=== PATIENT | female | born 1990 | race Caucasian/White ===

== ENCOUNTER → 2022-05-05 09:26 | Outpatient (BNVA) | payer OTHER, SELFPAY | PROVIDERS: PCP Internal Medicine; Visit Provider Physician Assistant | DX: Z13.89 Encounter for screening for other disorder (principal) ==

== ENCOUNTER → 2022-05-13 13:58 | Outpatient (BNVA) | payer OTHER, SELFPAY | PROVIDERS: PCP Internal Medicine; Visit Provider Physician Assistant Surgical | DX: E66.9 Obesity, unspecified (principal); Z68.36 Body mass index [BMI] 36.0-36.9, adult | CPT/HCPCS: 99202 ==

== ENCOUNTER → 2022-05-14 09:12 | Outpatient (BNVA) | payer OTHER, SELFPAY | PROVIDERS: PCP Internal Medicine; Visit Provider Physician Assistant Surgical | DX: Z11.0 Encounter for screening for intestinal infectious diseases (principal) | CPT/HCPCS: 99211 ==

== ENCOUNTER 2022-05-14 09:30 | Outpatient (REF) | payer OTHER, SELFPAY ==
[2022-05-18 13:33] LABS: H Pylori Breath Test Negative (Negative)
== END 2022-05-14 09:31 | disposition home or self-care (01) ==
LOC: HO.LNP 09:30
PROVIDERS: Visit Provider Physician Assistant Surgical
DX: E66.9 Obesity, unspecified (principal); I10 Essential (primary) hypertension
CPT/HCPCS: 83013

== ENCOUNTER 2022-05-15 09:30 | Outpatient (REF) | payer OTHER, SELFPAY ==
--- NOTE | ~2022-05-15 | XR_ITS ---
EXAMINATION: XR CHEST CLINICAL INFORMATION: Bariatric service evaluation. E66.9. COMPARISON: None TECHNIQUE: 2 views of the chest were obtained. FINDINGS: The lungs are clear and there is no airspace consolidation or groundglass opacity. Costophrenic sulci are well-defined. Heart size normal. Vascularity normal. The hilar and mediastinal contours are normal. There is a gentle dextrocurvature thoracic spine. XR/XR chest 2V IMPRESSION: Lungs clear.
--- NOTE | 2022-05-15 09:42 | ECG_ITS ---
Test Reason : obesity Blood Pressure : / mmHG Vent. Rate : 083 BPM Atrial Rate : 083 BPM P-R Int : 132 ms QRS Dur : 080 ms QT Int : 368 ms P-R-T Axes : 000 112 131 degrees QTc Int : 432 ms Limbs lead reversal Normal sinus rhythm Otherwise normal ECG No previous ECGs available Referred By: Thuan Dahl Electronically Signed By:Garfield Mcleod
[2022-05-15 09:45] LABS: MANUAL DIFF FLAG NO
[2022-05-15 10:54] LABS: Basophils Absolute Auto 0.1 X10*3/uL (0.0-0.2); Basophils Percent Auto 0.6 % (0-2); Eosinophils Absolute Auto 0.1 X10*3/uL (0.0-0.4); Hematocrit 40.9 % (37.0-47.0); Hemoglobin 13.3 g/dl (12.0-16.0); Imm Gran Abs Auto 0.05 X10*3/uL (0.00-0.03); Imm Gran Pct Auto 0.6 % (0.0-0.4); Mean Corpuscular HGB Conc 32.5 g/dl (31.0-35.0); Mean Corpuscular Hemoglobin 27.1 pg (27.0-33.0); Mean Corpuscular Volume 83.5 fL (80.0-98.0); Monocytes Absolute Auto 0.6 X10*3/uL (0.1-1.2); Monocytes Percent Auto 6.9 % (2-11); Neutrophils Absolute Auto 5.4 x10*3/uL (2.0-8.3); Neutrophils Percent Auto 66.9 % (45-73); Platelet Count 342 X10*3/uL (160-400); Red Cell Distribution Width 13.2 % (11.0-16.0); White Blood Count 8.1 X10*3/uL (4.8-10.8)
[2022-05-15 11:19] LABS: Estimated Average Glucose 100 mg/dL; Hemoglobin A1c % 5.1 %
[2022-05-15 11:36] LABS: Alanine Aminotransferase 31 U/L (0-31); Albumin Level 4.8 g/dL (3.5-5.0); Alkaline Phosphatase 72 U/L (39-117); Anion Gap 18 (12-20); Aspartate Amino Transferase 20 U/L (5-31); Bilirubin Total 0.7 mg/dL (0.0-1.0); Blood Urea Nitrogen 16 mg/dL (9-16); C Reactive Protein 0.45 mg/dL (< or = 0.50); Calcium 10.1 mg/dL (8.4-10.2); Carbon Dioxide 26 mmol/L (22-29); Chloride 103 mmol/L (96-108); Cholesterol 149 mg/dL; Estimated Glomerular Filt Rate > 60; Glucose Random 78 mg/dL (60-115); HDL Cholesterol 45 mg/dL; Iron 102 mcg/dL (30-160); LDL Cholesterol Calculated 91 mg/dl; Percent Iron Saturation 28 % (15-50); Potassium 5.5 mmol/L (3.3-5.1); Sodium 141 mmol/L (135-145); Total Iron Binding Capacity 367 mcg/dL (228-428); Total Protein 7.4 g/dL (6.5-8.0); Triglycerides 67 mg/dL; Unsaturated Iron Binding 265 ug/dL
[2022-05-15 11:53] LABS: Ferritin 68 ng/mL (10-122); Folate 8.5 ng/mL (> or = 4.0); Insulin 14 uU/mL (2-29); TSH reflex Free T4 0.54 uIU/mL (0.32-4.0); Vitamin B12 343 pg/mL (200-900); Vitamin D 25-OH Total 8.3 ng/mL (>30)
[2022-05-19 14:14] LABS: Calcium (PTHI) 10.5 mg/dL (8.6-10.2); PTHI 53 pg/mL (16-77)
[2022-05-19 16:05] LABS: Zinc 72 mcg/dL (60-130)
[2022-05-21 13:13] LABS: Vitamin A 65 mcg/dL (38-98)
[2022-05-24 17:49] LABS: Vitamin B1 11 nmol/L (8-30)
== END 2022-05-15 09:31 | disposition home or self-care (01) ==
LOC: HO.LAB 09:30
PROVIDERS: PCP Internal Medicine; Visit Provider Physician Assistant Surgical
DX: E66.9 Obesity, unspecified (principal); I10 Essential (primary) hypertension
CPT/HCPCS: 36415; 71046; 80053; 80061; 82306; 82607; 82728; 82746; 83036; 83525; 83540; 83970; 84425; 84443; 84590; 84630; 85025; 86140; 93005

== ENCOUNTER → 2022-05-28 10:10 | Outpatient (BNVA) | payer OTHER, SELFPAY | PROVIDERS: PCP Internal Medicine; Referring Provider Physician Assistant Surgical; Visit Provider Dietitian, Registered | DX: E66.9 Obesity, unspecified (principal); Z68.34 Body mass index [BMI] 34.0-34.9, adult | CPT/HCPCS: 97802 ==

== ENCOUNTER → 2022-06-09 12:55 | Outpatient (BNVA) | payer OTHER, SELFPAY | PROVIDERS: PCP Internal Medicine; Visit Provider Physician Assistant Surgical | DX: E66.9 Obesity, unspecified (principal); Z68.34 Body mass index [BMI] 34.0-34.9, adult | CPT/HCPCS: 99212 ==

== ENCOUNTER → 2022-06-10 12:45 | Outpatient (BNVA) | payer OTHER, SELFPAY | PROVIDERS: PCP Internal Medicine; Visit Provider Counselor Mental Health | DX: F41.1 Generalized anxiety disorder (principal); G90.A Postural orthostatic tachycardia syndrome [POTS]; E66.9 Obesity, unspecified | CPT/HCPCS: 90791 ==

== ENCOUNTER → 2022-06-23 09:26 | Outpatient (BNVA) | payer OTHER, SELFPAY | PROVIDERS: PCP Internal Medicine; Visit Provider Surgery | DX: E66.9 Obesity, unspecified (principal); I10 Essential (primary) hypertension; G90.A Postural orthostatic tachycardia syndrome [POTS]; F41.1 Generalized anxiety disorder; Z68.33 Body mass index [BMI] 33.0-33.9, adult | CPT/HCPCS: 99212 ==

== ENCOUNTER → 2022-06-25 11:12 | Outpatient (BNVA) | payer OTHER, SELFPAY | PROVIDERS: PCP Internal Medicine; Visit Provider Dietitian, Registered | DX: E66.9 Obesity, unspecified (principal) | CPT/HCPCS: 97803 ==

== ENCOUNTER 2022-07-01 07:44 | Outpatient (REF) | payer OTHER, SELFPAY ==
--- NOTE | ~2022-07-01 | FL_ITS ---
EXAMINATION: XR FLUOROSCOPY UPPER GI WITH AIR CLINICAL INFORMATION: Obesity. COMPARISON: None available. TECHNIQUE: Routine upper GI air-contrast study was performed in upright and lying position. FINDINGS: Following oral administration of thick barium and effervescent granules, there is normal propagation of bolus from the oral cavity through the pharynx, esophagus into stomach without any evidence of obstruction, narrowing or stricture. On placing patient supine and prone, there is a small sliding hiatal hernia with moderate gastroesophageal reflux. The rest of the course, caliber of the stomach, duodenal bulb and the sweep is normal. The mucosal pattern of the stomach and the duodenum is normal. FLUOROSCOPY TIME: 1.3 minutes DOSE AREA PRODUCT: 21.6 uGy-m2 (microgray-meter squared) FL/FL upper GI w air IMPRESSION: Small sliding hiatal hernia with moderate gastroesophageal reflux.
--- NOTE | ~2022-07-01 | US_ITS ---
EXAMINATION: US COMPLETE ABDOMEN WITH LIVER ELASTOGRAPHY CLINICAL INFORMATION: Obesity. COMPARISON: CT abdomen of 02/02/2020. TECHNIQUE: Real-time imaging of the abdominal viscera. Noninvasive ultrasound liver fibrosis assessment is performed using Rafia ElastPQ point quantification shear wave elastography (2D-SWE) with a C5-2 MHz transducer. Multiple elastography samples are obtained. FINDINGS: PANCREAS: Normal. The visualized pancreatic head and body are normal in appearance. The remainder of the pancreas is obscured from visualization by the overlying bowel gas. ABDOMINAL AORTA: The proximal, middle, and distal aortic segments are normal in caliber. INFERIOR VENA CAVA: Visualized portions are normal. LIVER: Normal. The liver demonstrates normal size, contour and echogenicity. No focal lesion or intrahepatic biliary duct dilatation. The right lobe measures 16.3 cm in length. The left lobe measures 9.6 cm in length. Portal flow is hepatopedal. Shear wave liver elastography median stiffness is 1.32 m/s (reference: normal median stiffness is 1.3 m/s or less). IQR/median stiffness to assess sampling precision is 0.14 (reference: good quality data set is IQR/median stiffness of 0.15 or less). GALLBLADDER: Status post cholecystectomy. COMMON BILE DUCT: Normal in caliber measuring 0.3 cm in diameter. RIGHT KIDNEY: No hydronephrosis. No renal calculi or focal solid parenchymal lesions. There are 3 simple-appearing cysts present with the largest in the midpole measuring 1.2 x 0.9 x 1.2 cm in size. These do not require followup. The kidney measures 11.6 cm in maximum dimension. LEFT KIDNEY: No hydronephrosis. No focal solid mass is identified. Within the midpole region there is a 1.2 x 0.8 x 1.2 cm cyst containing a single dependent calcification. This represents a Bosniak 2 type cyst that does not require followup. The kidney measures 11.5 cm in maximum dimension. SPLEEN: Normal. The spleen measures 11.8 cm in maximum dimension. FREE FLUID: None. US/US abdomen comp w elastography IMPRESSION: 1. Bilateral renal cysts. 2. Liver elastography: In the absence of other known clinical signs, measurements rule out compensated advanced chronic liver disease. If there are known clinical signs, further testing may be needed for confirmation. REFERENCE: Society of Radiologists in Ultrasound Liver Stiffness Thresholds (2020): LIVER STIFFNESS THRESHOLDS: *Liver Stiffness equal or less than 1.3 m/s: High probability of being normal. *Liver Stiffness less than 1.7 m/s: In the absence of other known clinical signs, rules out compensated advanced chronic liver disease. *Liver Stiffness 1.7-2.1 m/s: Suggestive of compensated advanced chronic liver disease but need further test for confirmation. *Liver Stiffness over 2.1 m/s: Rules in compensated advanced chronic liver disease. *Liver Stiffness over 2.4 m/s: Suggestive of clinically significant portal hypertension. QUALITY OF DATA SET: *IQR/Median value equal or less than 0.15 implies a quality data set. *IQR/Median value over 0.15 implies a poor quality data set. SIGNIFICANT CHANGE FROM PRIOR EXAM: Significant change if liver stiffness measurement is 10% or greater from prior exam. OTHER CONSIDERATIONS: The stage of liver fibrosis may be overestimated in the setting of acute hepatitis, liver inflammation, elevated liver function tests, hepatic vascular congestion, obstructive cholestasis, non-fasting state, and infiltrative diseases such as amyloidosis and lymphoma. In some patients with NAFLD, the liver stiffness thresholds for compensated advanced chronic liver disease may be lower. In causes other than viral hepatitis and NAFLD, liver stiffness thresholds are not well established.
== END 2022-07-01 07:45 | disposition home or self-care (01) ==
LOC: HO.US 07:44
PROVIDERS: PCP Internal Medicine; Visit Provider Physician Assistant Surgical
DX: E66.9 Obesity, unspecified (principal); I10 Essential (primary) hypertension
CPT/HCPCS: 74246; 76705; 76981

== ENCOUNTER → 2022-07-03 10:00 | Outpatient (BNVA) | payer OTHER, SELFPAY | PROVIDERS: PCP Internal Medicine; Visit Provider Counselor Mental Health ==

== ENCOUNTER → 2022-07-09 10:58 | Outpatient (BNVA) | payer OTHER, SELFPAY | PROVIDERS: PCP Internal Medicine; Visit Provider Physician Assistant Surgical ==

== ENCOUNTER → 2022-07-15 09:16 | Outpatient (BNVA) | payer OTHER, SELFPAY | PROVIDERS: PCP Internal Medicine; Visit Provider Physician Assistant Surgical | DX: E66.9 Obesity, unspecified (principal); G90.A Postural orthostatic tachycardia syndrome [POTS]; Z68.32 Body mass index [BMI] 32.0-32.9, adult | CPT/HCPCS: 99212 ==

== ENCOUNTER → 2022-07-23 12:23 | Outpatient (BNVA) | payer OTHER, SELFPAY | PROVIDERS: PCP Internal Medicine; Visit Provider Physician Assistant Surgical | DX: E66.9 Obesity, unspecified (principal); I10 Essential (primary) hypertension; F41.1 Generalized anxiety disorder; G90.A Postural orthostatic tachycardia syndrome [POTS]; Z68.33 Body mass index [BMI] 33.0-33.9, adult | CPT/HCPCS: 99212 ==

== ENCOUNTER → 2022-07-24 12:43 | Outpatient (BNVA) | payer OTHER, SELFPAY | PROVIDERS: PCP Internal Medicine; Referring Provider Internal Medicine; Visit Provider Surgery | DX: E66.9 Obesity, unspecified (principal); I10 Essential (primary) hypertension; G90.A Postural orthostatic tachycardia syndrome [POTS]; F41.1 Generalized anxiety disorder; K44.9 Diaphragmatic hernia without obstruction or gangrene; K76.0 Fatty (change of) liver, not elsewhere classified; K21.9 Gastro-esophageal reflux disease without esophagitis; Z68.33 Body mass index [BMI] 33.0-33.9, adult | CPT/HCPCS: 99212 ==

== ENCOUNTER → 2022-07-25 12:47 | Outpatient (BNVA) | payer OTHER, SELFPAY | PROVIDERS: PCP Internal Medicine; Visit Provider Surgery ==

== ENCOUNTER → 2022-08-05 11:08 | Outpatient (BNVA) | payer OTHER, SELFPAY | PROVIDERS: PCP Internal Medicine; Visit Provider Surgery | DX: E66.9 Obesity, unspecified (principal); K76.0 Fatty (change of) liver, not elsewhere classified; K44.9 Diaphragmatic hernia without obstruction or gangrene; K21.9 Gastro-esophageal reflux disease without esophagitis; F41.1 Generalized anxiety disorder; G90.A Postural orthostatic tachycardia syndrome [POTS]; I10 Essential (primary) hypertension; Z68.31 Body mass index [BMI] 31.0-31.9, adult | CPT/HCPCS: 99212 ==

== ENCOUNTER 2022-08-06 06:09 | Inpatient (IN) | payer OTHER, SELFPAY ==
[2022-07-29 13:53] VITALS: BMI 32.3
[2022-08-04 09:37] LABS: MANUAL DIFF FLAG NO
[2022-08-04 09:39] LABS: Basophils Percent Auto 0.6 % (0-2); Eosinophils Absolute Auto 0.1 X10*3/uL (0.0-0.4); Eosinophils Percent Auto 0.9 % (0-4); Hematocrit 40.5 % (37.0-47.0); Hemoglobin 13.6 g/dl (12.0-16.0); Imm Gran Abs Auto 0.02 X10*3/uL (0.00-0.03); Imm Gran Pct Auto 0.3 % (0.0-0.4); Lymphocytes Absolute Auto 2.3 X10*3/uL (1.2-4.9); Lymphocytes Percent Auto 34.6 % (20-40); Mean Corpuscular HGB Conc 33.6 g/dl (31.0-35.0); Mean Corpuscular Hemoglobin 27.7 pg (27.0-33.0); Mean Corpuscular Volume 82.5 fL (80.0-98.0); Mean Platelet Volume 10.5 fL (9.4-12.3); Monocytes Absolute Auto 0.3 X10*3/uL (0.1-1.2); Monocytes Percent Auto 5.1 % (2-11); Neutrophils Absolute Auto 3.8 x10*3/uL (2.0-8.3); Neutrophils Percent Auto 58.5 % (45-73); Platelet Count 255 X10*3/uL (160-400); Red Blood Count 4.91 X10*6/uL (4.20-5.50); Red Cell Distribution Width 12.9 % (11.0-16.0); White Blood Count 6.5 X10*3/uL (4.8-10.8)
[2022-08-04 09:48] LABS: INTERNATIONAL NORM RATIO 1.1 (0.9-1.1); Prothrombin Time 12.9 SEC (10.0-13.1)
[2022-08-04 09:51] LABS: Partial Thromboplastin Time 35.8 SEC (26.0-36.4)
[2022-08-04 10:02] LABS: Alanine Aminotransferase 11 U/L (0-31); Albumin Level 4.6 g/dL (3.5-5.0); Alkaline Phosphatase 57 U/L (39-117); Anion Gap 12 (12-20); Aspartate Amino Transferase 11 U/L (5-31); Bilirubin Total 0.5 mg/dL (0.0-1.0); Blood Urea Nitrogen 12 mg/dL (9-16); C Reactive Protein 0.14 mg/dL (< or = 0.50); Calcium 10.1 mg/dL (8.4-10.2); Carbon Dioxide 29 mmol/L (22-29); Chloride 105 mmol/L (96-108); Cholesterol 148 mg/dL; Creatinine Clr Calc Pharmacy 110.9; Estimated Glomerular Filt Rate > 60; Glucose Random 88 mg/dL (60-115); HDL Cholesterol 45 mg/dL; Iron 62 mcg/dL (30-160); LDL Cholesterol Calculated 94 mg/dl; Percent Iron Saturation 20 % (15-50); Potassium 4.8 mmol/L (3.3-5.1); Sodium 141 mmol/L (135-145); Total Iron Binding Capacity 303 mcg/dL (228-428); Total Protein 7.4 g/dL (6.5-8.0); Triglycerides 47 mg/dL; Unsaturated Iron Binding 241 ug/dL
[2022-08-04 10:35] LABS: Ferritin 51 ng/mL (10-122); TSH reflex Free T4 0.84 uIU/mL (0.32-4.0); Vitamin B12 523 pg/mL (200-900); Vitamin D 25-OH Total 59.7 ng/mL (>30)
[2022-08-04 10:59] LABS: Estimated Average Glucose 103 mg/dL; Hemoglobin A1C 119.4609 umol/L; Hemoglobin A1c % 5.2 %
--- NOTE | 2022-08-05 10:49 | P.CONAN_ITS ---
Documented by User: Viki Ramachandran NP 08/05/22 10:52 HPI - Anesthesia Eval Consult details Narrative: 32yo F for Gastrectomy Sleeve, EGD poss diaphragmatic hernia, poss ventral hernia, poss open. Cardiac cleared - follows for POTS PMFSH Active Problems Active Problems: All Active Problems (Updated 07/30/22 @ 06:33 by Zulma Willard RN) Obesity (BMI 30-39.9) (Acute) HTN (hypertension) (Acute) POTS (postural orthostatic tachycardia syndrome) (Acute) Generalized anxiety disorder (Acute) NAFLD (nonalcoholic fatty liver disease) (Acute) Hiatal hernia (Acute) GERD (gastroesophageal reflux disease) (Acute) Past Medical History Medical History Anxiety GERD (gastroesophageal reflux disease) Hiatal hernia HTN (hypertension) Postural orthostatic tachycardia syndrome [POTS] Family History Family History Mother Hypertension High cholesterol Asthma Emphysema, unspecified Father Diabetes High cholesterol Hypertension Brother No problems noted. Brother No problems noted. Son Autism Son No problems noted. Son No problems noted. Son No problems noted. Daughter No problems noted. Daughter No problems noted. Surgical History Surgical History Hx of cholecystectomy Hx of dilation and curettage Hx of wisdom tooth extraction Social History Social History Are you a primary care professionals to a significant other at home: Yes Do you presently have visiting nurse or other home services: No Alcohol intake: never Patient Tobacco Use Status: Never used Tobacco Have you been hit, kicked, punched, or otherwise hurt by someone within the past year? If so, by whom?: No Are you DNR?: No Advance Directives: No Advance Directives Information Provided: No Advance Directives on File: No Recently lost weight without trying: No Eating poorly because of decreased appetite: No Nutrition Risks: No Nutritional Risk Patient : No Poor oral hygiene: No Meds Allergies Allergy/AdvReac Type Severity Reaction Status Date / Time hydrocodone Allergy Mild Hives Verified 08/05/22 11:31 oxycodone [From Percocet] Allergy Mild Hives Verified 08/05/22 11:31 ampicillin [From Unasyn] Allergy Hives Verified 08/05/22 11:31 sulbactam [From Unasyn] Allergy Hives Verified 08/05/22 11:31 Home Medications Medication Instructions Recorded Confirmed Last Taken Type labetalol 100 mg tablet 50 mg PO BID 07/15/22 07/29/22 08/06/22 05:00 History Exam Exam Date and Time: August 05, 2022 1049 Height,Weight and Vital Signs: Height 5 ft 5 in Weight 87.997 kg Pertinent Lab Results Pertinent Lab Results: Laboratory Tests 08/04/22 08/04/22 08/04/22 09:30 09:35 09:35 WBC 6.5 RBC 4.91 Hgb 13.6 Hct 40.5 MCV 82.5 MCH 27.7 MCHC 33.6 RDW 12.9 Plt Count 255 D MPV 10.5 Immature Gran % (Auto) 0.3 Neut % (Auto) 58.5 Lymph % (Auto) 34.6 [place] % (Auto) 5.1 Eos % (Auto) 0.9 Baso % (Auto) 0.6 Lymph # (Auto) 2.3 [place] # (Auto) 0.3 Eos # (Auto) 0.1 Baso # (Auto) 0.0 Abs Immat Gran (auto) 0.02 Absolute Neuts (auto) 3.8 Absolute Nucleated RBC 0.000 Nucleated RBC % (auto) 0.0 PT 12.9 INR 1.1 APTT 35.8 Sodium Potassium Chloride Carbon Dioxide Anion Gap BUN Creatinine Estim Creat Clear Calc Estimated GFR Random Glucose Estimat Average Glucose Hemoglobin A1c % Calcium Iron TIBC % Saturation Unsat Iron Binding Ferritin Total Bilirubin AST ALT Alkaline Phosphatase C-Reactive Protein Total Protein Albumin Triglycerides Cholesterol LDL Cholesterol, Calc HDL Cholesterol Vitamin B12 25-OH Vitamin D Total TSH Blood Type O Positive Antibody Screen NEGATIVE 08/04/22 08/04/22 09:35 09:35 WBC RBC Hgb Hct MCV MCH MCHC RDW Plt Count MPV Immature Gran % (Auto) Neut % (Auto) Lymph % (Auto) [place] % (Auto) Eos % (Auto) Baso % (Auto) Lymph # (Auto) [place] # (Auto) Eos # (Auto) Baso # (Auto) Abs Immat Gran (auto) Absolute Neuts (auto) Absolute Nucleated RBC Nucleated RBC % (auto) PT INR APTT Sodium 141 Potassium 4.8 Chloride 105 Carbon Dioxide 29 Anion Gap 12 BUN 12 Creatinine 0.79 Estim Creat Clear Calc 110.9 Estimated GFR > 60 Random Glucose 88 Estimat Average Glucose 103 Hemoglobin A1c % 5.2 Calcium 10.1 Iron 62 TIBC 303 % Saturation 20 Unsat Iron Binding 241 Ferritin 51 Total Bilirubin 0.5 AST 11 ALT 11 Alkaline Phosphatase 57 C-Reactive Protein 0.14 Total Protein 7.4 Albumin 4.6 Triglycerides 47 Cholesterol 148 LDL Cholesterol, Calc 94 HDL Cholesterol 45 Vitamin B12 523 25-OH Vitamin D Total 59.7 TSH 0.84 Blood Type Antibody Screen Narrative Narrative: EKG 04/2022 Vent. Rate : 083 BPM ? ? Atrial Rate : 083 BPM ?? P-R Int : 132 ms? QRS Dur : 080 ms ? ? QT Int : 368 ms ? ? ? P-R-T Axes : 000 112 131 degrees ?? QTc Int : 432 ms ? Limbs lead reversal Normal sinus rhythm Otherwise normal ECG No previous ECGs available Assessment and Plan Assessment Anesthesia Assessment: Chart Reviewed Documented by User: Matt Sexton MD 08/06/22 07:34 PMFSH Past Medical History Medical History Anxiety GERD (gastroesophageal reflux disease) Hiatal hernia HTN (hypertension) Postural orthostatic tachycardia syndrome [POTS] Family History Family History Mother Hypertension High cholesterol Asthma Emphysema, unspecified Father Diabetes High cholesterol Hypertension Brother No problems noted. Brother No problems noted. Son Autism Son No problems noted. Son No problems noted. Son No problems noted. Daughter No problems noted. Daughter No problems noted. Family history of problems with anesthesia: No Surgical History Surgical History Hx of cholecystectomy Hx of dilation and curettage Hx of wisdom tooth extraction History of Problems with Anesthesia: No Social History Social History Are you a primary care professionals to a significant other at home: Yes Do you presently have visiting nurse or other home services: No Alcohol intake: never Patient Tobacco Use Status: Never used Tobacco Have you been hit, kicked, punched, or otherwise hurt by someone within the past year? If so, by whom?: No Are you DNR?: No Advance Directives: No Advance Directives Information Provided: No Advance Directives on File: No Recently lost weight without trying: No Eating poorly because of decreased appetite: No Nutrition Risks: No Nutritional Risk Patient : No Poor oral hygiene: No Meds Allergies Allergy/AdvReac Type Severity Reaction Status Date / Time hydrocodone Allergy Mild Hives Verified 08/05/22 11:31 oxycodone [From Percocet] Allergy Mild Hives Verified 08/05/22 11:31 ampicillin [From Unasyn] Allergy Hives Verified 08/05/22 11:31 sulbactam [From Unasyn] Allergy Hives Verified 08/05/22 11:31 Home Medications Medication Instructions Recorded Confirmed Last Taken Type labetalol 100 mg tablet 50 mg PO BID 07/15/22 07/29/22 08/06/22 05:00 History Exam Airway Mallampati Class: I TM Dist: >3cm Neck ROM: Full Heart: ok Lungs: ok Assessment and Plan Assessment Anesthesia Assessment: Anesthesia Plan Discussed Final Anesthetic Review Family History of Problems with Anesthesia: No History of Problems with Anesthesia: No NPO: Yes ASA Class: II Final Preanesthetic Review: No Changes in Pt Med Stat, Meds/Allgs Chart Reviewed, Consent Obtained/Reviewed and Anes Risks/Benef Reviewed Patient Risk: Low Procedure Risk: Intermediate Anesthetic Plan Anesthetic Plan: GA and Agree w/ Assess. and Plan Disposition: Standard PACU
[2022-08-05 12:34] LABS: COVID-19 Test Negative (Negative); IDNOW Serial# BCCEAD1C
--- NOTE | 2022-08-05 13:33 | MHC.SHP ---
Pre-Procedural Eval Section A Date of Service: 08/05/22 The patient is an INPATIENT: Yes The History & Physical has been completed within 30 days and I have reviewed it.: Yes Section B Chief Complaint: Obesity, unspecified Allergies: Allergies Allergy/AdvReac Type Severity Reaction Status Date / Time acetaminophen [From Percocet] Allergy Mild Hives Verified 08/05/22 11:31 hydrocodone Allergy Mild Hives Verified 08/05/22 11:31 oxycodone [From Percocet] Allergy Mild Hives Verified 08/05/22 11:31 ampicillin [From Unasyn] Allergy Hives Verified 08/05/22 11:31 sulbactam [From Unasyn] Allergy Hives Verified 08/05/22 11:31 Plan I have reviewed the history and physical and performed a pertinent physical examination on my patient. No changes have occurred unless specified. Time Spent With Patient Time: Total time managing care of this patient today ____ minutes.
[2022-08-06] VITALS (12 sets, daily range): BP systolic 110–138; BP diastolic 58–90; PULSE 66–98; RESP 12–18; TEMP 36.6–37.1; O2SAT 97–100
[2022-08-06 06:36] LABS: UPreg QC Valid YES; Urine Pregnancy NEGATIVE (NEGATIVE)
[2022-08-06] MEDS: Aprepitant 32 MG/4.4 ML VIAL IVPUSH (06:37)
--- NOTE | 2022-08-06 06:38 | MHC.SHP ---
Pre-Procedural Eval Section A Date of Service: 08/06/22 The patient is an INPATIENT: Yes The History & Physical has been completed within 30 days and I have reviewed it.: Yes Section B Chief Complaint: Obesity, unspecified Allergies: Allergies Allergy/AdvReac Type Severity Reaction Status Date / Time hydrocodone Allergy Mild Hives Verified 08/05/22 11:31 oxycodone [From Percocet] Allergy Mild Hives Verified 08/05/22 11:31 ampicillin [From Unasyn] Allergy Hives Verified 08/05/22 11:31 sulbactam [From Unasyn] Allergy Hives Verified 08/05/22 11:31 Plan I have reviewed the history and physical and performed a pertinent physical examination on my patient. No changes have occurred unless specified. Time Spent With Patient Time: Total time managing care of this patient today ____ minutes.
[2022-08-06] MEDS: Lactated Ringers 1,000 ML 150 ML IVCONT (06:39)
--- NOTE | 2022-08-06 06:39 | P.OP_ITS ---
Operative Note Operative Note Date of Service: 08/06/22 Narrative: Preop diagnosis: [Obesity, hypertension,NAFLD, hiatal hernia, POTS] Postop diagnosis: [same] Procedure: [Laparoscopic sleeve gastrectomy, hiatal hernia repair, gastropexy, intraoperative esophagogastroscopy] Surgeon: Josh Willoughby MD Assist: [Moriah Adame PA-C] Anesthesia: [GET, Marcaine, 0.5% with epi] Estimated blood loss: [3cc] Specimen: [Portion of stomach with fundus] Intraoperative findings: [Hiatal hernia, hepatomegaly, grossly normal stomach and spleen. No obvious anterior pancreas pathology. No evidence of appendicitis or right lower quadrant inflammation] Indications: [The patient is a 32-year-old woman with a struggle with obesity that was refractory to medical management. After multiple attempts to lose weight and failing, she entered the surgical weight loss program with a BMI of 36.3 and a weight of 218 lb. Following Education regarding healthy lifestyle changes, the patient wanted to discuss surgical weight loss and the options of laparoscopic gastric bypass and laparoscopic gastric sleeve were reviewed. The patient wanted to proceed with a laparoscopic sleeve gastrectomy, possible hiatal hernia repair, intraoperative endoscopy. I reviewed the inherent risks of this procedure which include, but are not limited to: Bleeding that could require another operation or blood transfusion; the inherent risks of transfusion reaction infectious disease from blood transfusions; the risk of staple line leaks that could cause sepsis, multi-system organ failure and ; the risk of mesenteric or deep vein thrombosis of the lower extremities that could cause a fatal pulmonary embolism was reviewed; the risk of GERD that could require conversion to gastric bypass was discussed; the risk of recurrent hiatal hernia, especially in the setting of weight regain was reviewed. The risk of weight regain if maladaptive eating and sedentary behavior continue was discussed. The importance of proper diet and increased activity to augment surgical weight loss and the fact that no operation would result in weight loss of poor dietary decisions and sedentary behavior are resumed were discussed at length and apparently understood. The patient had the option of having a martinez slator present and declined this option.] Procedure: [Patient was identified in the preoperative holding area and again in operating room 6. 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 She was placed supine on the table, induced and general endotracheal anesthesia administered with excellent effect. An appropriate time-out was performed. Safety straps were utilized and a footboard utilized. The patient was induced in general endotracheal anesthesia administered with excellent effect. An appropriate time-out was performed. The patient's abdomen was then widely prepped and draped in the usual manner for surgery using Chlorprep. Antibiotics per protocol were administered by Anesthesia. 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 SCDs were utilized. After infiltrating preemptive local in the skin and subcutaneous tissues in the left subcostal space, a stab incision was made sharply and the Veress needle inserted without incident. Appropriate drop test was performed then a pneumoperitoneum of 15 mmHg was obtained using carbon dioxide. Opening pressures were 6 mm Hg. Preemptive local was used at all trocar insertion sites and I began in the epigastric midline 10 cm from the xiphoid. A transverse incision was made. Next, a 5 mm 0 degree scope over a 5 mm Optiview trocar was used to access the abdomen in the in the midline of the epigastrium approximately 10 cm from the xiphoid. Upon entering, the obturator was removed and the abdomen explored. There was no evidence of injury from the Veress needle in it was removed. The bowel and deep structures were examined for injury from the trocar and none identified. The scope was then switched to a 5 mm 45 degree scope. Next, using preemptive local, additional 5 mm trocars were placed under direct laparoscopic vision and the 5 mm midline trocar upsized to a 12 mm to accommodate the stapler. The patient was then positioned in reverse Trendelenburg and the liver retractor deployed through the right lateral 5 mm trocar and secured. An hiatal hernia was demonstrated once the liver retractor was positioned. The stomach was already decompressed, but the 40 [place] ViSiGi was inserted to the GE junction by the anesthesiologist without difficulty. Dissection was begun along the greater curvature using the 5 mm [place] Li gaSure for hemostasis. Dissection was then carried towards the pylorus to 3-4 cm from the pylorus and retro gastric adhesions lysed. The gastroesophageal fat pad was carefully mobilized taking care to avoid injury to the esophagus and stomach and dissection carried towards the short gastrics taking care to avoid injury to the spleen and splenic artery. The diaphragmatic hiatus was carefully examined for a hernia which was present as described, so repair was indicated. Dissection was carried from the left edd of the diaphragm posteriorly. Next, the phrenoesophogeal memberane was open anterior and the pars flaccida opened to access the right edd of the diaphragm. The esophagus was carefully preserved, mobilized & freed into the abdomen for 3cm by dissection carried into the mediastinum. The esophagus was then surrounded with a quarter-inch Barbie drain and retracted anteriorly to facilitate posterior repair. Posterior dissection of the retroesophageal area was performed to demonstrate both crurae and hiatal hernia repair was performed using one 0 silk sutures with posterior repair. There was some anterior hiatus laxity that was closed with a single anterior 0 silk suture. Next, the 40 [place] ViSiGi bougie was advanced by anesthesiologist under direct vision and laparoscopic guidance and positioned in the antrum using laparoscopic graspers to serve as a guide for a stapled sleeve gastrectomy. Stapling was performed with DataLocker power stapler with a purple 45 and then purple 60 loads. The 10 mm clip elevator technician was used to apply additional clips to the staple line. Care was taken to be sure that the sleeve laid flat and was without stricture. Once the sleeve was complete, the portion of stomach was placed in the lower abdomen to be sent for permanent section. The staple line, gastrocolic omentum, spleen and short gastric areas were all inspected for hemostasis which was found to be good. The bougie was then removed. After inspecting again for hemostasis, a gastropexy was performed using 2-0 Polysorb suture to secure the sleeve gastrectomy to the gastrocolic omentum with intracorporeal suture technique. Next, I broke scrub perform an on-table upper endoscopy to assess the sleeve and the esophagus and stomach. The patient was returned to neutral position and the Olympus 160 gastroscope was advanced taking care to preserve the endotracheal tube. The esophagus was intubated without incident. Minimal air was insufflated and the scope advanced into the newly formed sleeve. The staple line was inspected for hemostasis and the morphology of the sleeve appeared straight with a uniform diameter. Intraoperatively, there was no evidence of staple line leak as my social worker assistant instilled sterile saline into the operative field via endoscope. The scope was then used to aspirate the air from the sleeve withdrawn and removed. I then rescrubbed to return to the operative field and again inspected the field for hemostasis. The patient was again placed in reverse Trendelenburg. After final assessment for hemostasis, the patient was returned to neutral position, a Mable used to withdraw the stomach which was sent for permanent section. The fascia of the 12 mm midline was closed using an 0 Polysorb figure of 8 on a suture passer under direct laparoscopic vision. The abdomen was then deflated and all trocars removed. The suture was then tied and the skin closed with 4-0 Monocryl subcuticular sutures. The abdomen was then washed and dried, benzoin and Steri-Strips, 2x2s & Tegaderms. The patient tolerated the procedure well was then extubated and sent to PACU in stable condition. All sponge needle and instrument counts were correct x2. At the patient's request, I contact Callie at [phone] to update her on the operation and findings. Her questions seemed to be satisfactorily answered.
--- NOTE | 2022-08-06 07:11 | PHA.MEDREC ---
Pharmacy Consult ? Medication Reconciliation Pharmacy has completed the medication reconciliation. Reviewed med rec done by nursing
--- NOTE | 2022-08-06 07:50 | PM.DS ---
DS: Providers Provider Date of Service: 08/07/22 Date of admission: 08/06/22 06:09 Primary care physician: Brigida Aleman MD DS: Summary Hospital Course Hospital Course: ADMITTING DIAGNOSIS: morbid obesity, HTN, POTS DISCHARGE DIAGNOSIS: same, s/p laparoscopic sleeve gastrectomy and repair diaphragmatic hernia PAST SURGICAL HISTORY: cholecystectomy, dilation and curretage PROCEDURE: upper endoscopy, laparoscopic sleeve gastrectomy and repair of diaphragmatic hernia hernia DISCHARGE SUMMARY: History of Present Illness: The patient is a 32 year-old woman with a BMI of 36.3 kg/m2 and associated co-morbidities as described above. The patient had extensive work-up, lost 28.5lbs preoperatively and was electively scheduled for laparoscopic, possible open sleeve gastrectomy and gastropexy. Risks and complications of the surgery were discussed with the patient in advance, particularly the possibility of , pulmonary embolism, anastomotic leak, bleeding, bowel injury, GERD, cardiac, renal or pulmonary complications. The patient understood all the risks and was in agreement with the surgical plan. Hospital Course: The patient underwent an uneventful laparoscopic sleeve gastrectomy with gastropexy and repair of diaphragmatic hernia on the day of admission. Postoperatively, the patient was transferred to the surgical floor. The patient received IV Acetaminophen and IV dilaudid for pain control. Patient was started on bariatric phase 1 diet POD #0. On postoperative day one, the patient was feeling well without nausea, vomiting, fevers, or tachycardia. The patient had some mild incisional pain and the abdomen was soft. On the morning of postoperative day one, the patient was continued on 1 ounce of water or ice every half hour. During the day, the patient did fairly well, having some incisional pain, but able to ambulate adequately and to tolerate liquids well. Since the patient is doing well, we decided that the patient was ready to be discharged. The patient was given instructions to follow-up with me next week and to call my office for any fever over 101, persistent abdominal pain, nausea, vomiting, GERD, symptoms of DVT such as calf tenderness, or leg swelling, or pulmonary embolism such as chest pain or shortness of breath. The patient was also instructed to drink 40-60 ounces of liquids per day using the 1-ounce cups. The patient had been given prescriptions for Tylenol for pain, Zofran prn for nausea, and pantoprazole and carafate previously. The patient was encouraged to ambulate and use the incentive spirometer. The patient was allowed to shower, but no baths, and encouraged to stay active at home. All of these instructions were given to the patient personally. All questions were answered and the patient understood all instructions, the instructions were also given to the patient in print. Time Spent with Patient Time attestation: Total time managing care of this patient today ____ minutes. Discharge coordination time: Less than 30 minutes Quality: Safe Use of Opioids Does Pt have an Active Cancer Diagnosis on the Problem List?: No Quality: Stroke Does the patient have a stroke diagnosis?: No Physical Exam Vital Signs: Vital Signs: Last Vital Signs Temp 97.8 F 08/06/22 06:39 Pulse 87 08/06/22 06:39 Resp 15 08/06/22 06:39 BP 121/73 08/06/22 06:39 Pulse Ox 99 08/06/22 06:39 O2 Del Method Room Air 08/06/22 06:39 BMI result Body Mass Index 32.3 DS: Data Data Completed and Pending Labs on day of discharge: Laboratory Results - last 24 hr 08/05/22 08/06/22 12:11 06:15 Urine Test NEGATIVE COVID-19 (JOSE) Negative COVID-19 Clin Com See Note Discharge Plan Discharge Anticipated Discharge Date/Time: 08/07/22 10:42 Patient Disposition: Home, Self-Care Discharge Diagnosis: s/p sleeve gastrectomy and hiatal hernia repair Referrals: Brigida Aleman MD [Primary Care Provider] - 1 Week Discharge Medications: Continued labetalol 100 mg tablet 50 mg PO BID ondansetron HCl 4 mg tablet 4 mg PO Q6H PRN (Reason: nausea and vomiting) Qty: 20 0RF pantoprazole 40 mg tablet,delayed release (DR/EC) 40 mg PO QAM 30 Days Qty: 30 2RF sucralfate 100 mg/mL suspension 10 ml PO BID 30 Days Qty: 600 2RF acetaminophen 500 mg/15 mL liquid 500 mg PO Q6H PRN (Reason: fever or pain) Qty: 237 2RF Discontinued cholecalciferol (vitamin D3) 125 mcg (5,000 unit) capsule 125 mcg PO DAILY Qty: 90 0RF Discharge Orders: Discharge Order (Routine); Ordered 08/07/22 Ordered By: Vivina Kuselias Activity on Discharge: No heavy lifting Stand Alone Forms: Patient Portal Discharge page Care Plan Goals: weight loss Health Concerns: obesity Plan of Treatment: No tub baths, sex or returning to work until discussed at first post op appointment. No exercise, alcohol, tobacco or illegal drug use. Continue to use incentive spirometer hourly while awake. Walk in home for 5- 10 minutes every 2 hours during the first week. Continue phase 1 diet today and start phase 2 diet tomorrow morning. Follow all instructions in the bariatric handbook and call with any questions. 1. Please call your doctor or come back to the emergency room should any new symptoms arise. 2. You will receive a courtesy call from [facility] 24-48 hours after discharge. 3. Activity: abstain from alcohol, practice limited stair climbing, no bending, no driving, no exercise, no illicit substances, no lifting, no sex, no tub bath, no work. 4. Diet: continue as discussed with bariatric team.. 5. Dressing Change/Wound Care: Do not change or remove surgical dressings unless they are wet or soiled. 6. Call your doctor if: - Your temperature exceeds 101.5 F - You experience excessive pain or swelling - You have an unexpected reaction to medication - You have excessive bleeding - You experience continued vomiting/nausea - Your incision begins to separate - Your incision shows signs of infection such as increased redness, swelling, excessive pain, heat, or drainage (light blood or clear fluid is normal) 7. General instructions: No lifting greater than 5 lbs for the next 4 weeks[address] driving within 24 hours of taking narcotic pain medications. If you do not move your bowels in the next 2 days, please take milk of magnesia over the counter. Please follow the post op diet and do not advance your diet until you are seen in the office in about 2 weeks. Please walk around your home every hour or two to prevent blood clots from forming in your legs. You do not need to wake from sleeping to walk. Please sleep in a bed or couch to prevent kinking at the hips and knees. Please take your incentive spirometer (your lung compressor battery pellets) home with you and use it for the next few days to prevent pneumonias. You may shower, no hot tubs, baths or swimming pools. Please call the office with any questions or concerns such as increasing abdominal pain, fever, chills, shortness of breath, chest pain, leg pain or swelling, or redness or drainage from your incisions. Do not hesitate to contact the office with any questions at . The patient's medical history has been reviewed and they are considered low risk for post op DVT and therefore DVT prophylaxis is not considered necessary. Travel after surgery was reviewed. The patient has not disclosed any travel plans during the first 30 days after surgery and they have been advised that within the first 30 days after surgery any bus, plane, train or car travel over 2 hours in duration is contraindicated due to the possibility of developing blood clots from immobility. Any travel, needs to include periods of ambulation of 10 minutes in duration every 2 hours. The patient was instructed to discuss any plans for travel during this period with their bariatric surgeon. Assessment: stable, post op sleeve gastrectomy and hiatal hernia repair
[2022-08-06] MEDS: ondansetron HCL 4 MG/2 ML VIAL IVPUSH ×2 (10:53→18:25)
[2022-08-06 11:30] LABS: Hematocrit 36.1 % (37.0-47.0); Hemoglobin 12.2 g/dl (12.0-16.0)
[2022-08-06 11:50] LABS: Anion Gap 13 (12-20); Blood Urea Nitrogen 11 mg/dL (9-16); Carbon Dioxide 22 mmol/L (22-29); Chloride 106 mmol/L (96-108); Estimated Glomerular Filt Rate > 60; Glucose Random 109 mg/dL (60-115); Potassium 4.7 mmol/L (3.3-5.1); Sodium 136 mmol/L (135-145)
[2022-08-06] MEDS: Famotidine/PF 20 MG/2 ML VIAL IVPUSH ×2 (12:24→20:03)
[2022-08-06] MEDS: Lactated Ringers 1,000 ML 100 ML IVCONT ×2 (12:25→21:48)
[2022-08-06] MEDS: Acetaminophen 1,000 MG/100 ML PIGGYBACK 16.7 MG IV ×2 (13:04→18:25)
--- NOTE | 2022-08-06 13:21 | P.PNGS_ITS ---
Subjective Subjective Date of Service: 08/06/22 Patient reports: still having pain and nausea Interval history: The patient is seen in room 383 postoperatively. She is somnolent and has some nausea and expected pain but denies any vomiting. Physical Exam Vital Signs: Vital Signs: Last Vital Signs Temp 97.8 F 08/06/22 12:07 Pulse 95 08/06/22 12:07 Resp 16 08/06/22 12:07 BP 128/68 08/06/22 12:07 Pulse Ox 99 08/06/22 12:07 O2 Del Method Nasal Cannula 08/06/22 12:07 O2 Flow Rate 2.0 08/06/22 12:07 BMI result Body Mass Index 32.3 On exam, she is in no acute distress She is in no respiratory distress Abdomen is obese with expected incisional tenderness, binder is intact Objective Data Active Medications Famotidine (Famotidine/Pf 20 Mg/2 Ml Vial) 20 mg IVPUSH BID [facility] Last Admin: 08/06/22 12:24 Dose: 20 mg Documented By: СЕРГЕЙ Fentanyl (Fentanyl Citrate/Pf 100 Mcg/2 Ml Vial) 50 mcg IVPUSH Q5M PRN; Protocol PRN Reason: Pain, Severe (Pain Scale 7-10) Hydromorphone HCl (Hydromorphone Hcl 0.5 Mg/0.5 Ml Syringe) 0.5 mg IVPUSH Q5M PRN; Protocol PRN Reason: Pain, Severe (Pain Scale 7-10) Hydromorphone HCl (Hydromorphone Hcl 0.5 Mg/0.5 Ml Syringe) 0.25 mg IVPUSH Q4H PRN; Protocol PRN Reason: Pain, Moderate(Pain Scale 4-6) Lactated Ringer's (Lr) 1,000 mls @ 100 mls/hr IVCONT .Q10H [facility] Last Admin: 08/06/22 12:25 Dose: 100 mls/hr Documented By: СЕРГЕЙ Acetaminophen (Ofirmev) 1,000 mg in 100 mls @ 16.7 mls/hr IV .Q6H [facility] Last Admin: 08/06/22 13:04 Dose: 16.7 mls/hr Documented By: СЕРГЕЙ Labetalol HCl (Labetalol Hcl 100 Mg Tablet) 50 mg PO BID [facility]; Protocol Metoclopramide HCl (Metoclopramide Hcl 10 Mg/2 Ml Vial) 10 mg IVPUSH Q6H PRN PRN Reason: Nausea Ondansetron HCl (Ondansetron Hcl 4 Mg/2 Ml Vial) 4 mg IVPUSH Q8H [facility] Sodium Chloride (0.9 % Sodium Chloride Flush 3 Ml Syringe) 3 ml IVFLUSH QSHIFT [facility] Labs 08/06/22 11:17 08/06/22 11:17 Labs: Laboratory Results - last 24 hr 08/06/22 08/06/22 06:15 11:17 Anion Gap 13 Estim Creat Clear Calc 127.0 Estimated GFR > 60 Random Glucose 109 Calcium 9.0 D Urine Test NEGATIVE Procedures Date of Service Date of Service: 08/06/22 Progress Note: A&P Assessment and plan (1) Obesity (BMI 30-39.9): Status: Acute (2) S/P laparoscopic sleeve gastrectomy: Status: Acute (3) S/P repair of paraesophageal hernia: Status: Acute (4) HTN (hypertension): Status: Acute (5) POTS (postural orthostatic tachycardia syndrome): Status: Acute (6) NAFLD (nonalcoholic fatty liver disease): Status: Acute (7) Generalized anxiety disorder: Status: Acute Plan See orders Work on hydration after the nausea resolves OOB when ready later today. Time Spent With Patient Time: Total time managing care of this patient today ____ minutes. Quality Stroke Does the patient have a stroke diagnosis?: No VTE Prior VTE?: No VTE Risk Level:: Surgical - moderate VTE Device Contraindication: N/A - Device Ordered VTE Drug Contraindication: Treatment Not Indicated
[2022-08-06] MEDS: Metoclopramide HCl 10 MG/2 ML VIAL IVPUSH (16:06)
[2022-08-06 16:19] LABS: Calcium (PTHI) 10.2 mg/dL (8.6-10.2); PTHI 44 pg/mL (16-77)
[2022-08-06] MEDS: Labetalol HCL 100 MG TABLET 50 MG PO (20:03)
[2022-08-06] MEDS: 0.9 % Sodium Chloride Flush 3 ML SYRINGE IVFLUSH (20:04)
[2022-08-07] MEDS: Acetaminophen 1,000 MG/100 ML PIGGYBACK 16.7 MG IV ×2 (00:19→06:11)
[2022-08-07 03:23] VITALS: BP 122/73; PULSE 80; RESP 18; TEMP 36.6; O2SAT 97
[2022-08-07] MEDS: ondansetron HCL 4 MG/2 ML VIAL IVPUSH (03:23)
[2022-08-07 06:34] LABS: MANUAL DIFF FLAG NO
[2022-08-07 06:40] LABS: Basophils Percent Auto 0.3 % (0-2); Eosinophils Percent Auto 0.1 % (0-4); Hematocrit 36.7 % (37.0-47.0); Hemoglobin 12.3 g/dl (12.0-16.0); Imm Gran Abs Auto 0.05 X10*3/uL (0.00-0.03); Imm Gran Pct Auto 0.5 % (0.0-0.4); Lymphocytes Absolute Auto 1.7 X10*3/uL (1.2-4.9); Lymphocytes Percent Auto 16.2 % (20-40); Mean Corpuscular HGB Conc 33.5 g/dl (31.0-35.0); Mean Corpuscular Hemoglobin 27.4 pg (27.0-33.0); Mean Corpuscular Volume 81.7 fL (80.0-98.0); Mean Platelet Volume 11.2 fL (9.4-12.3); Monocytes Absolute Auto 0.7 X10*3/uL (0.1-1.2); Monocytes Percent Auto 6.5 % (2-11); Neutrophils Absolute Auto 8.2 x10*3/uL (2.0-8.3); Neutrophils Percent Auto 76.4 % (45-73); Platelet Count 262 X10*3/uL (160-400); Red Blood Count 4.49 X10*6/uL (4.20-5.50); Red Cell Distribution Width 12.6 % (11.0-16.0); White Blood Count 10.8 X10*3/uL (4.8-10.8)
[2022-08-07 07:05] LABS: Anion Gap 14 (12-20); Blood Urea Nitrogen 8 mg/dL (9-16); Calcium 9.6 mg/dL (8.4-10.2); Carbon Dioxide 23 mmol/L (22-29); Chloride 104 mmol/L (96-108); Creatinine Clr Calc Pharmacy 132.8; Estimated Glomerular Filt Rate > 60; Glucose Random 88 mg/dL (60-115); Potassium 4.4 mmol/L (3.3-5.1); Sodium 137 mmol/L (135-145)
--- NOTE | 2022-08-07 07:50 | PM.PNGS ---
Subjective Subjective Date of Service: 08/07/22 Patient reports: feels better Interval history: The patient states she is Doing better than last night when I saw her. She denies any chest pain, difficulty breathing, shortness of breath. She denies any regurgitation, GERD/heartburn, nausea or vomiting. She is doing well on bariatric stage I diet. She otherwise denies any new complaints. Physical Exam Vital Signs: Vital Signs: Last Vital Signs Temp 97.9 F 08/07/22 03:23 Pulse 80 08/07/22 03:23 Resp 18 08/07/22 03:23 BP 122/73 08/07/22 03:23 Pulse Ox 97 08/07/22 03:23 O2 Del Method Room Air 08/07/22 07:02 O2 Flow Rate 2.0 08/06/22 12:07 BMI result Body Mass Index 32.3 On exam she is in good spirits She is nontoxic Sclera remain anicteric She is in no acute respiratory distress Abdominal binder is intact with appropriate incisional tenderness noted Objective Data Active Medications Famotidine (Famotidine/Pf 20 Mg/2 Ml Vial) 20 mg IVPUSH BID [facility] Last Admin: 08/06/22 20:03 Dose: 20 mg Documented By: LUCY Fentanyl (Fentanyl Citrate/Pf 100 Mcg/2 Ml Vial) 50 mcg IVPUSH Q5M PRN; Protocol PRN Reason: Pain, Severe (Pain Scale 7-10) Hydromorphone HCl (Hydromorphone Hcl 0.5 Mg/0.5 Ml Syringe) 0.5 mg IVPUSH Q5M PRN; Protocol PRN Reason: Pain, Severe (Pain Scale 7-10) Hydromorphone HCl (Hydromorphone Hcl 0.5 Mg/0.5 Ml Syringe) 0.25 mg IVPUSH Q4H PRN; Protocol PRN Reason: Pain, Moderate(Pain Scale 4-6) Lactated Ringer's (Lr) 1,000 mls @ 100 mls/hr IVCONT .Q10H [facility] Last Admin: 08/06/22 21:48 Dose: 100 mls/hr Documented By: LUCY Acetaminophen (Ofirmev) 1,000 mg in 100 mls @ 16.7 mls/hr IV .Q6H [facility] Last Admin: 08/07/22 06:11 Dose: 16.7 mls/hr Documented By: LUCY Labetalol HCl (Labetalol Hcl 100 Mg Tablet) 50 mg PO BID [facility]; Protocol Last Admin: 08/06/22 20:03 Dose: 50 mg Documented By: LUCY Metoclopramide HCl (Metoclopramide Hcl 10 Mg/2 Ml Vial) 10 mg IVPUSH Q6H PRN PRN Reason: Nausea Last Admin: 08/06/22 16:06 Dose: 10 mg Documented By: СЕРГЕЙ Ondansetron HCl (Ondansetron Hcl 4 Mg/2 Ml Vial) 4 mg IVPUSH Q8H [facility] [place] Last Admin: 08/07/22 03:23 Dose: 4 mg Documented By: LUCY Sodium Chloride (0.9 % Sodium Chloride Flush 3 Ml Syringe) 3 ml IVFLUSH QSHIFT [facility] Last Admin: 08/07/22 06:33 Dose: Not Given Documented By: СЕРГЕЙ Non-Admin Reason: IV Running Labs 08/07/22 06:10 08/07/22 06:10 Labs: Laboratory Results - last 24 hr 08/04/22 08/06/22 08/07/22 09:35 11:17 06:10 MCV 81.7 MCH 27.4 MCHC 33.5 RDW 12.6 Plt Count 262 MPV 11.2 Immature Gran % (Auto) 0.5 H Neut % (Auto) 76.4 H Lymph % (Auto) 16.2 L [place] % (Auto) 6.5 Eos % (Auto) 0.1 Baso % (Auto) 0.3 Lymph # (Auto) 1.7 [place] # (Auto) 0.7 Eos # (Auto) 0.0 Baso # (Auto) 0.0 Abs Immat Gran (auto) 0.05 H Absolute Neuts (auto) 8.2 Absolute Nucleated RBC 0.000 Nucleated RBC % (auto) 0.0 Anion Gap 13 Estim Creat Clear Calc 127.0 Estimated GFR > 60 Random Glucose 109 Calcium 9.0 D PTH Intact 44 Calcium (PTH Intact) 10.2 08/07/22 06:10 MCV MCH MCHC RDW Plt Count MPV Immature Gran % (Auto) Neut % (Auto) Lymph % (Auto) [place] % (Auto) Eos % (Auto) Baso % (Auto) Lymph # (Auto) [place] # (Auto) Eos # (Auto) Baso # (Auto) Abs Immat Gran (auto) Absolute Neuts (auto) Absolute Nucleated RBC Nucleated RBC % (auto) Anion Gap 14 Estim Creat Clear Calc 132.8 Estimated GFR > 60 Random Glucose 88 Calcium 9.6 D PTH Intact Calcium (PTH Intact) Procedures Date of Service Date of Service: 08/07/22 Progress Note: A&P Assessment and plan (1) S/P laparoscopic sleeve gastrectomy: Status: Acute (2) S/P repair of paraesophageal hernia: Status: Acute (3) Obesity (BMI 30-39.9): Status: Acute (4) HTN (hypertension): Status: Acute (5) POTS (postural orthostatic tachycardia syndrome): Status: Acute (6) Generalized anxiety disorder: Status: Acute (7) NAFLD (nonalcoholic fatty liver disease): Status: Acute Plan The importance of hydration and following dietary recommendations were reviewed. I also explained to the patient that intraoperative laparoscopy to assess the right lower quadrant for pathology given her ER visit last week confirm no surgical causes. If she has recurrence of her pain or symptoms, she will contact me. Patient will receive additional dietary instruction from the physician's program support assistant and then is stable for discharge. Time Spent With Patient Time: Total time managing care of this patient today ____ minutes. Quality Stroke Does the patient have a stroke diagnosis?: No VTE Prior VTE?: No VTE Risk Level:: Surgical - moderate VTE Device Contraindication: N/A - Device Ordered VTE Drug Contraindication: Treatment Not Indicated
[2022-08-07 08:00] VITALS: BP 121/73; PULSE 68; RESP 16; TEMP 36.5; O2SAT 98
--- NOTE | 2022-08-07 08:02 | HO.POSTANES ---
Post Anesthesia Evaluation Post Anesthesia Evaluation Vital Signs: Vital Signs Temp Pulse Resp BP Pulse Ox O2 Del Method 08/07/22 07:02 Room Air 08/07/22 03:23 97.9 F 80 18 122/73 97 Room Air 08/06/22 23:11 98.2 F 85 18 126/70 97 Room Air Anesthesia: General Endotracheal-GETA Mental Status: Awake Pain Control: Satisfactory Nausea/Vomiting: None Hydration: Adequate Anesthesia-Related Issues: No Anes. Related Issues
[2022-08-07] MEDS: Labetalol HCL 100 MG TABLET 50 MG PO (08:24)
[2022-08-07] MEDS: Famotidine/PF 20 MG/2 ML VIAL IVPUSH (08:24)
--- NOTE | 2022-08-07 10:42 | MHC.CM.PN ---
PT REPORTS SHE LIVES WITH HER AND CHILDREN, YOUNGEST AGE 2 SHE REPORTS SHE IS INDEPENDENT WITH CARE, HAS NO SERVICES AND NO DME SHE SAYS HER MOTHER COMES DAILY AND CAN ASSIST WITH THE KIDS UPON DC PT COMPLETED A HCP TODAY NAMING HER MOTHER, KATHLEEN WRIGHT, THE AGENT PT IS DANNY GARCIA, NOT BOOSTED PCP: LAURENCE MORAN PT WILL DC HOME TODAY WITH NO SERVICES VIA FAMILY TRANSPORT
[2022-08-08 17:27] LABS: Zinc 87 mcg/dL (60-130)
[2022-08-10 12:09] LABS: Vitamin B1 <6 nmol/L (8-30)
[2022-08-11 00:58] LABS: Vitamin A 41 mcg/dL (38-98)
== END 2022-08-07 10:22 | disposition home or self-care (01) | DRG 403 ==
LOC: HO.SSSA 07:44 → HO.S3 10:57
PROVIDERS: Nurse Practitioner; Physician Assistant; Physician Assistant Surgical; Admitting Provider Surgery; PCP Internal Medicine; Visit Provider Surgery
PROC: 0DB64Z3 Excision of Stomach, Percutaneous Endoscopic Approach, Vertical (ICD-10-PCS; CPT 43845; principal; 2022-08-06 07:30)
DX: E66.01 Morbid (severe) obesity due to excess calories (principal); G90.A Postural orthostatic tachycardia syndrome [POTS]; K76.0 Fatty (change of) liver, not elsewhere classified; K44.9 Diaphragmatic hernia without obstruction or gangrene; I10 Essential (primary) hypertension; F41.1 Generalized anxiety disorder; Z68.36 Body mass index [BMI] 36.0-36.9, adult; Z20.822 Contact with and (suspected) exposure to COVID-19; Z88.1 Allergy status to other antibiotic agents; Z88.5 Allergy status to narcotic agent; Z79.899 Other long term (current) drug therapy
CPT/HCPCS: 36415; 80048; 80053; 80061; 81025; 82306; 82607; 82728; 83036; 83540; 83970; 84425; 84443; 84590; 84630; 85014; 85018; 85025; 85610; 85730; 86140; 86850; 86900; 86901; 87635; 88307; 88342; C9088; C9145; J0131; J1100; J1170; J1956; J2250; J2405; J2765; J3010

== ENCOUNTER → 2022-08-13 08:31 | Outpatient (BNVA) | payer OTHER, SELFPAY | PROVIDERS: PCP Internal Medicine; Visit Provider Physician Assistant | DX: Z98.84 Bariatric surgery status (principal); G90.A Postural orthostatic tachycardia syndrome [POTS]; Z87.19 Personal history of other diseases of the digestive system | CPT/HCPCS: 99212 ==

== ENCOUNTER 2022-08-22 13:06 | Emergency (ER) | payer OTHER, SELFPAY ==
--- NOTE | ~2022-08-22 | XR_ITS ---
EXAMINATION: XR CHEST CLINICAL INFORMATION: Appears like something stuck. Anterior chest pain. COMPARISON: Previous chest x-ray April 2022 TECHNIQUE: 2 views of the chest were obtained. FINDINGS: The cardiac and mediastinal contours are stable. The lungs are clear. No pleural effusion or pneumothorax. Mild thoracolumbar scoliosis. Postsurgical changes with clips projecting over the region of the stomach and postcholecystectomy. XR/XR chest 2V IMPRESSION: No evidence for acute disease in the chest.
[2022-08-22 13:15] VITALS: BP 141/89; PULSE 88; RESP 18; TEMP 37.1; O2SAT 98
--- NOTE | 2022-08-22 13:15 | ED_ITS ---
HPI - General Adult General Chief complaint: General Medical Stated complaint: feels something stuck in espohgus Time Seen by Provider: 08/22/22 13:33 Source: patient, RN notes reviewed and old records reviewed Mode of arrival: ambulatory History of Present Illness HPI narrative: 32-year-old female with a past medical history of anxiety, GERD, hiatal hernia, HTN, POTS, s/p LGS on 08/06/[address] Willoughby, presenting to the ED complaining of feeling like something stuck in epigastrium s/p eating a bite of quesadilla at 11:00AM. Admits immediately after swallowing felt discomfort. Reports mild nausea, denies vomiting, diarrhea, SOB, throat closing sensation Onset (ago): hour(s) Related Data Home Medications Medication Instructions Recorded Confirmed labetalol 100 mg tablet 50 mg PO BID 07/15/22 08/13/22 Previous Rx's Medication Instructions Recorded pantoprazole 40 mg tablet,delayed 40 mg PO QAM 30 days #30 tabs 07/24/22 release sucralfate 100 mg/mL oral 10 ml PO BID 30 days #600 mL 07/24/22 suspension calcium citrate 315 mg-vitamin D3 1 tab PO BID #60 tabs 08/13/22 5 mcg (200 unit) tablet (Calcium Citrate + D) Allergies Allergy/AdvReac Type Severity Reaction Status Date / Time hydrocodone Allergy Mild Hives Verified 08/22/22 13:15 oxycodone [From Percocet] Allergy Mild Hives Verified 08/22/22 13:15 ampicillin [From Unasyn] Allergy Hives Verified 08/22/22 13:15 sulbactam [From Unasyn] Allergy Hives Verified 08/22/22 13:15 Review of Systems Review of Systems: Constitutional: No Fever, No Fatigue, No Malaise ENT/Mouth: +FB sensation, No Ear Pain, No Nasal Congestion, No sore throat, No Rhinorrhea, No Swallowing Difficulty Eyes: No Eye Pain, No Swelling, No Redness, No Vision Changes Cardiovascular: No Chest Pain, No SOB, No Dyspnea on Exertion, No Orthopnea, No Edema, No Palpitations Respiratory: No Cough, No Sputum, No Dyspnea Gastrointestinal: + Nausea, No Vomiting, No Diarrhea, No Constipation, + Abdominal pain Genitourinary: No Dysuria, No Urinary Frequency, No Flank Pain Musculoskeletal: No joint pain, No Myalgias, No Joint Swelling Skin: No Skin Lesions, No rash Neuro: No Weakness, No Numbness, No Dizziness, No Headache Yes all other systems are reviewed and are negative Constitutional: Constitutional: Reports as per [facility] Past Medical History Attestation statement: The following information was validated with the patient. Source: old records reviewed Medical History Anxiety GERD (gastroesophageal reflux disease) Hiatal hernia HTN (hypertension) Postural orthostatic tachycardia syndrome [POTS] Surgical History Hx of cholecystectomy Hx of dilation and curettage Hx of wisdom tooth extraction Family History Family History Mother Hypertension High cholesterol Asthma Emphysema, unspecified Father Diabetes High cholesterol Hypertension Brother No problems noted. Brother No problems noted. Son Autism Son No problems noted. Son No problems noted. Son No problems noted. Daughter No problems noted. Daughter No problems noted. Social History Social History Housing: House Are you a primary home health care physician to a significant other at home: Yes Do you presently have visiting nurse or other home services: No Alcohol intake: never Patient Tobacco Use Status: Never used Tobacco Advance Directives: Yes Advance Directives on File: Yes Advance Directives Date on File: 08/08/22 service: No Current occupational status: unemployed Physical Exam ED Vital Signs: Vital Signs - 24 hr 08/22/22 13:15 Temperature 98.8 F Pulse Rate 88 Respiratory Rate 18 Blood Pressure 141/89 H Pulse Oximetry 98 Oxygen Delivery Method Room Air BMI result Body Mass Index 30.0 Const Other: Tearful General: cooperative, healthy appearing and anxious Orientation/consciousness: patient oriented x3 Limitations: no limitations HENMT Head: Yes normal to inspection and Yes atraumatic Ears: hearing grossly normal bilaterally General nose exam: Normal external nose present Face and sinus: Yes normal facial exam Eyes General: appearance normal, both eyes and all related structures EOM: EOMs intact bilaterally Neck Neck: Yes normal visual inspection and Yes no meningeal signs Resp Effort & Inspection: normal respiratory effort, no respiratory distress and no stridor Auscultation: clear to auscultation bilaterally, no crackles and no wheezes Cardio Rate: regular rate Heart sounds: S1 normal heart sound present and S2 normal heart sound present GI Inspection: Yes normal to inspection Palpation (GI): Soft to palpation, Tenderness to palpation present (GI) in the epigastrum; with no rebound tenderness, no guarding and not rigid Skin Rashes: no rashes Wounds: no wounds Neuro General: patient oriented x3, tone normal and no meningeal signs Gait exam (Neuro): Normal gait present Extrem General: Yes normal to inspection Course Course Course Narrative: RME performed by Yamel Becerril PA-C. Patient is a 32 year old assigned female at presenting to the emergency department feeling like a piece of a breakfast is stuck in her chest. Patient is 16 days post bariatric surgery. Patient placed back in the waiting room pending room availability and results. -bariatric SIMON Adame evaluated patient in the ED, recommended CXR and will re- evaluate -ALT mildly elevated. Labs otherwise reassuring. CXR unremarkable > patient is tolerating p.o. in the ED without difficulty. Re-evaluated by Bariatrics and cleared for discharge. Results discussed with patient including worrisome signs and symptoms and strict return precautions, and when to return to the emergency department. They verbalized understanding and feel safe for discharge at this time. Medications Administered Discontinued Medications Generic Name Dose Route Start Last Admin Trade Name Freq PRN Reason Stop Dose Admin Lorazepam 1 mg 08/22/22 14:24 08/22/22 14:31 Lorazepam 1 Mg Tablet PO 08/22/22 14:25 1 mg ONCE ONE Administration Medical Decision Making Medical Decision Making [facility] Narrative: 32-year-old female with a past medical history of anxiety, GERD, hiatal hernia, HTN, POTS, s/p LGS on 08/06/[address] Willoughby, presenting to the ED complaining of feeling like something stuck in epigastrium s/p eating a bite of quesadilla at 11:00AM. On exam vital signs stable, tearful, lungs CTA, no stridor, talking complete dentin tooth, no respiratory distress, abdomen soft with mild epigastric tenderness, no rebound or guarding. Concern for food bolus vs esophageal abrasion vs anxiety reaction. Low suspicion for cholecystitis/lithiasis, pancreatitis, appendicitis/diverticulitis Plan: Labs, CXR, consult bariatric surgery Please refer to course for remaining clinical decision making, interpretation of labs/imaging results, and discussions with consultants and/or family members. Differential Diagnosis Differential Diagnoses: The differential diagnosis associated with the presentation includes As above Admission/Observation Consideration of admission/observation: Escalation of care including admission/observation considered Lab Data MDM Lab Attestation statement: I reviewed the patient's lab results. 08/22/22 13:52 08/22/22 13:52 Labs: Lab Results 08/22/22 08/22/22 Range/Units 13:52 13:52 WBC 6.3 (4.8-10.8) X10*3/uL RBC 5.02 (4.20-5.50) X10*6/uL Hgb 13.5 (12.0-16.0) g/dl Hct 41.2 (37.0-47.0) % MCV 82.1 (80.0-98.0) fL MCH 26.9 L (27.0-33.0) pg MCHC 32.8 (31.0-35.0) g/dl RDW 13.2 (11.0-16.0) % Plt Count 239 (160-400) X10*3/uL MPV 11.9 (9.4-12.3) fL Immature Gran % (Auto) 0.5 H (0.0-0.4) % Neut % (Auto) 74.7 H (45-73) % Lymph % (Auto) 17.4 L (20-40) % [place] % (Auto) 6.1 (2-11) % Eos % (Auto) 0.5 (0-4) % Baso % (Auto) 0.8 (0-2) % Lymph # (Auto) 1.1 L (1.2-4.9) X10*3/uL [place] # (Auto) 0.4 (0.1-1.2) X10*3/uL Eos # (Auto) 0.0 (0.0-0.4) X10*3/uL Baso # (Auto) 0.1 (0.0-0.2) X10*3/uL Abs Immat Gran (auto) 0.03 (0.00-0.03) X10*3/uL Absolute Neuts (auto) 4.7 (2.0-8.3) x10*3/uL Absolute Nucleated RBC 0.000 (0.0-0.012) X10*3/uL Nucleated RBC % (auto) 0.0 (0.0-0.2) /100WBC Sodium 145 (135-145) mmol/L Potassium 3.8 (3.3-5.1) mmol/L Chloride 107 (96-108) mmol/L Carbon Dioxide 28 (22-29) mmol/L Anion Gap 14 (12-20) BUN 10 (9-16) mg/dL Creatinine 0.74 (0.5-1.4) mg/dL Estim Creat Clear Calc 114.2 Estimated GFR > 60 Random Glucose 104 (60-115) mg/dL Calcium 10.1 (8.4-10.2) mg/dL Magnesium 1.6 (1.6-2.6) mg/dL Total Bilirubin 0.4 (0.0-1.0) mg/dL AST 31 (5-31) U/L ALT 48 H (0-31) U/L Alkaline Phosphatase 74 (39-117) U/L Total Protein 7.6 (6.5-8.0) g/dL Albumin 4.5 (3.5-5.0) g/dL Lipase 38 (8-78) U/L Radiology Impression Discussion of test interpretation with radiology: I have reviewed the radiologist's reading. External Record Review External record reviewed: Inpatient record, Office record, Outpatient record, Prior outpatient labs, Prior outpatient radiology, Primary care record and Outside ED record Tests considered The following testing was considered but not selected: As above Discharge Plan Discharge Clinical Impression: Sensation of foreign body Patient Disposition: Home, Self-Care Additional Instructions: Please continue medications and shakes as previously discussed and prescribed Follow-up with your doctor If you develop persistent or worsening pain, you are unable to eat or drink return to the emergency department Prescriptions: No Action labetalol 100 mg tablet 50 mg PO BID pantoprazole 40 mg tablet,delayed release (DR/EC) 40 mg PO QAM 30 Days Qty: 30 2RF sucralfate 100 mg/mL suspension 10 ml PO BID 30 Days Qty: 600 2RF calcium citrate-vitamin D3 [Calcium Citrate + D] 315 mg-5 mcg (200 unit) tablet 1 tab PO BID Qty: 60 11RF Referrals: Moriah Adame PA-C [Physician Creative/Art Director] -
--- NOTE | 2022-08-22 13:54 | MHC.EDTECH ---
Labs collected and sent
[2022-08-22 14:05] LABS: MANUAL DIFF FLAG NO
[2022-08-22 14:09] LABS: Basophils Absolute Auto 0.1 X10*3/uL (0.0-0.2); Basophils Percent Auto 0.8 % (0-2); Eosinophils Percent Auto 0.5 % (0-4); Hematocrit 41.2 % (37.0-47.0); Hemoglobin 13.5 g/dl (12.0-16.0); Imm Gran Abs Auto 0.03 X10*3/uL (0.00-0.03); Imm Gran Pct Auto 0.5 % (0.0-0.4); Lymphocytes Absolute Auto 1.1 X10*3/uL (1.2-4.9); Lymphocytes Percent Auto 17.4 % (20-40); Mean Corpuscular HGB Conc 32.8 g/dl (31.0-35.0); Mean Corpuscular Hemoglobin 26.9 pg (27.0-33.0); Mean Corpuscular Volume 82.1 fL (80.0-98.0); Mean Platelet Volume 11.9 fL (9.4-12.3); Monocytes Absolute Auto 0.4 X10*3/uL (0.1-1.2); Monocytes Percent Auto 6.1 % (2-11); Neutrophils Absolute Auto 4.7 x10*3/uL (2.0-8.3); Neutrophils Percent Auto 74.7 % (45-73); Platelet Count 239 X10*3/uL (160-400); Red Blood Count 5.02 X10*6/uL (4.20-5.50); Red Cell Distribution Width 13.2 % (11.0-16.0); White Blood Count 6.3 X10*3/uL (4.8-10.8)
[2022-08-22] MEDS: LORazepam 1 MG TABLET PO (14:31)
[2022-08-22 14:33] LABS: Alanine Aminotransferase 48 U/L (0-31); Albumin Level 4.5 g/dL (3.5-5.0); Alkaline Phosphatase 74 U/L (39-117); Anion Gap 14 (12-20); Aspartate Amino Transferase 31 U/L (5-31); Bilirubin Total 0.4 mg/dL (0.0-1.0); Blood Urea Nitrogen 10 mg/dL (9-16); Calcium 10.1 mg/dL (8.4-10.2); Carbon Dioxide 28 mmol/L (22-29); Chloride 107 mmol/L (96-108); Creatinine Clr Calc Pharmacy 114.2; Estimated Glomerular Filt Rate > 60; Glucose Random 104 mg/dL (60-115); Lipase 38 U/L (8-78); Magnesium 1.6 mg/dL (1.6-2.6); Potassium 3.8 mmol/L (3.3-5.1); Sodium 145 mmol/L (135-145); Total Protein 7.6 g/dL (6.5-8.0)
== END 2022-08-22 16:47 | disposition home or self-care (01) ==
PROVIDERS: Physician Assistant; Physician Assistant Medical; Emergency Provider Emergency Medicine; PCP Internal Medicine
DX: R09.89 Other specified symptoms and signs involving the circulatory and respiratory systems (principal); Z79.899 Other long term (current) drug therapy
CPT/HCPCS: 36415; 71046; 80053; 83690; 83735; 85025; 99282; 99283

== ENCOUNTER → 2022-08-26 16:31 | Outpatient (BNVA) | payer OTHER, SELFPAY | PROVIDERS: PCP Internal Medicine; Visit Provider Physician Assistant | DX: Z98.84 Bariatric surgery status (principal); Z98.890 Other specified postprocedural states; Z87.19 Personal history of other diseases of the digestive system; G90.A Postural orthostatic tachycardia syndrome [POTS] ==

== ENCOUNTER → 2022-09-12 13:42 | Outpatient (BNVA) | payer OTHER, SELFPAY | PROVIDERS: PCP Internal Medicine; Visit Provider Physician Assistant | DX: Z98.84 Bariatric surgery status (principal); Z98.890 Other specified postprocedural states; Z87.19 Personal history of other diseases of the digestive system ==

== ENCOUNTER 2022-10-13 13:30 | Outpatient (AMB) | payer OTHER, SELFPAY ==
--- NOTE | 2022-10-13 12:49 | A.OFFVIS_ITS ---
Intake VS Expanded 10/13/22 13:37 Height 5 ft 5 in Weight 167 lb BMI 27.8 Intake Visit Reasons: VIDEO PO LSG 08/06/22 Allergies hydrocodone Allergy (Mild, Verified 08/22/22 13:15) Hives oxycodone [From Percocet] Allergy (Mild, Verified 08/22/22 13:15) Hives ampicillin [From Unasyn] Allergy (Verified 08/22/22 13:15) Hives sulbactam [From Unasyn] Allergy (Verified 08/22/22 13:15) Hives Medication List - Last Reconciled 10/13/22 by SIMON Cyr-Christian calcium citrate-vitamin D3 315 mg-5 mcg (200 unit) (Calcium Citrate + D) 1 tab PO BID [id number]-vit K 45 mg iron- 800 mcg-120 mcg (Bariatric Multivitamins) caps PO pantoprazole 40 mg PO QAM 30 days sucralfate 10 mL PO BID 30 days HPI HPI Comments History of Present Illness Details 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 No emesis or reflux. Meal plan: 8am - PP with almond milk 12 pm - same shake 4pm - 1 scrambled egg 6pm - a third shake Exercise - Cardio 1 hour videos -5 d/ week. Walking also - 1 hour with her kids. [facility] Medical History Anxiety GERD (gastroesophageal reflux disease) Hiatal hernia HTN (hypertension) Postural orthostatic tachycardia syndrome [POTS] Surgical History Hx of cholecystectomy Hx of dilation and curettage Hx of wisdom tooth extraction Family History Mother Hypertension High cholesterol Asthma Emphysema, unspecified Father Diabetes High cholesterol Hypertension Brother No problems noted. Brother No problems noted. Son Autism Son No problems noted. Son No problems noted. Son No problems noted. Daughter No problems noted. Daughter No problems noted. Social History Housing: House Are you a primary md do resident urgent care to a significant other at home: Yes Do you presently have visiting nurse or other home services: No Alcohol intake: never Patient Tobacco Use Status: Never used Tobacco Advance Directives Date on File: 08/08/22 service: No Current occupational status: unemployed Assessment & Plan Assessment & Plan (1) S/P laparoscopic sleeve gastrectomy: Code(s): Z98.84 - Bariatric surgery status Plan: Doing great with 51 lbs lost so far. Meal plan changes - decrease to 2.5 shakes per day, and can have up to 2 oz of egg, cc, yogurt or canned fish or chicken at her meal. Exercise - continue what she is doing. Let me know if not losing at least 1 l per week. Next appt with me in 4 weeks. (2) S/P repair of paraesophageal hernia: Code(s): Z98.890 - Other specified postprocedural states; Z87.19 - Personal history of other diseases of the digestive system Telehealth Telehealth Location of provider rendering services: practice address Location of patient: address on file Patient Identification confirmed using: Name, : Yes Telehealth method: video Patient verbally consented to treatment: Yes Patient verbally consented to billing insurance company: Yes Patient informed of any privacy concerns related to visit: Yes Coding Level of Care Code Global (16350) Diagnoses S/P laparoscopic sleeve gastrectomy Z98.84 S/P repair of paraesophageal hernia Z98.890; Z87.19
[2022-10-13 13:37] VITALS: BMI 27.8
== END 2022-10-13 13:59 | disposition home or self-care (01) ==
LOC: HO.HBS 13:49
PROVIDERS: PCP Internal Medicine; Visit Provider Physician Assistant
DX: Z98.84 Bariatric surgery status (principal); Z98.890 Other specified postprocedural states; Z87.19 Personal history of other diseases of the digestive system
CPT/HCPCS: 99024

== ENCOUNTER → 2022-10-13 13:30 | Outpatient (BNVA) | payer OTHER, SELFPAY | PROVIDERS: PCP Internal Medicine; Visit Provider Physician Assistant | DX: Z98.84 Bariatric surgery status (principal); Z98.890 Other specified postprocedural states; Z87.19 Personal history of other diseases of the digestive system ==

== ENCOUNTER 2022-11-27 15:30 | Outpatient (AMB) | payer OTHER, SELFPAY ==
--- NOTE | 2022-11-27 15:36 | MHC.OFFVISWM ---
Intake VS Expanded 11/27/22 15:37 Height 5 ft 5 in Weight 157 lb BMI 26.1 Intake Visit Reasons: VIDEO PO LSG 08/06/22 Allergies hydrocodone Allergy (Mild, Verified 08/22/22 13:15) Hives oxycodone [From Percocet] Allergy (Mild, Verified 08/22/22 13:15) Hives ampicillin [From Unasyn] Allergy (Verified 08/22/22 13:15) Hives sulbactam [From Unasyn] Allergy (Verified 08/22/22 13:15) Hives Medication List - Last Reconciled 11/27/22 by SIMON Cyr-Christian calcium citrate-vitamin D3 315 mg-5 mcg (200 unit) (Calcium Citrate + D) 1 tab PO BID [id number]-vit K 45 mg iron- 800 mcg-120 mcg (Bariatric Multivitamins) caps PO HPI HPI Comments History of Present Illness Details 3 months s/p LSg, 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 TBWL 61 lbs 8am - pure protien shake 12 pm - same shake 4pm - 2oz lean protein - egg or chicken 7pm - half shake Exercise - 5-6 days per week. [place] and [address] videos [facility] Medical History Anxiety GERD (gastroesophageal reflux disease) Hiatal hernia HTN (hypertension) Postural orthostatic tachycardia syndrome [POTS] Surgical History Hx of cholecystectomy Hx of dilation and curettage Hx of wisdom tooth extraction Family History Mother Hypertension High cholesterol Asthma Emphysema, unspecified Father Diabetes High cholesterol Hypertension Brother No problems noted. Brother No problems noted. Son Autism Son No problems noted. Son No problems noted. Son No problems noted. Daughter No problems noted. Daughter No problems noted. Social History Housing: House Are you a primary career center director to a significant other at home: Yes Do you presently have visiting nurse or other home services: No Alcohol intake: never Patient Tobacco Use Status: Never used Tobacco Advance Directives Date on File: 08/08/22 service: No Current occupational status: unemployed Assessment & Plan Assessment & Plan (1) S/P laparoscopic sleeve gastrectomy: Code(s): Z98.84 - Bariatric surgery status Plan: 3 months post op doing great! Needs about 70 grams protien per day 9 am - Shake 1 pm - 15 grams protein - 2 eggs or yogurt to or cc or a bar 4pm - 2 oz protien - fish/chicken/pork/shellfish/turkey, 1 oz cokked veg -> 2 oz, then end of month raw or cooked veg 8pm - bar or yogurt Will continue her exercise plan and let me know if she has any questions or concerns. Goal weight af 140 - 145. Next appt with me in 6 weeks. (2) S/P repair of paraesophageal hernia: Code(s): Z98.890 - Other specified postprocedural states; Z87.19 - Personal history of other diseases of the digestive system Telehealth Telehealth Location of provider rendering services: practice address Location of patient: address on file Patient Identification confirmed using: Name, : Yes Telehealth method: video Patient verbally consented to treatment: Yes Patient verbally consented to billing insurance company: Yes Patient informed of any privacy concerns related to visit: Yes Coding Level of Care Code Tele Est Pt Level 4 (73699) Diagnoses S/P laparoscopic sleeve gastrectomy Z98.84 S/P repair of paraesophageal hernia Z98.890; Z87.19
[2022-11-27 15:37] VITALS: BMI 26.1
== END 2022-11-27 16:20 | disposition home or self-care (01) ==
LOC: HO.HBS 15:51
PROVIDERS: PCP Internal Medicine; Visit Provider Physician Assistant
DX: E66.3 Overweight (principal); Z68.26 Body mass index [BMI] 26.0-26.9, adult; Z90.3 Acquired absence of stomach [part of]; Z98.84 Bariatric surgery status
CPT/HCPCS: 99213

== ENCOUNTER → 2022-11-27 15:30 | Outpatient (BNVA) | payer OTHER, SELFPAY | PROVIDERS: PCP Internal Medicine; Visit Provider Physician Assistant | DX: Z98.84 Bariatric surgery status (principal); Z98.890 Other specified postprocedural states; Z87.19 Personal history of other diseases of the digestive system ==